=== PATIENT | female | born 1980 | race Caucasian/White ===

== ENCOUNTER 2021-11-04 15:06 | Emergency (ER) | payer MEDICAID ==
[~2021-11-04] VITALS: Ht 165.1 cm; Wt 91.0 kg
[2021-11-04 15:19] VITALS: BP 151/98
[2021-11-04] MEDS ORDERED: ibuprofen tablet 400 MG TABLET PO ONE (16:00)
[2021-11-04] MEDS ORDERED: acetaminophen 325mg tablet PO ONE (16:00)
[2021-11-04] MEDS ORDERED: ibuprofen 200mg tablet PO ONE (16:10)
== END 2021-11-04 16:24 | disposition home or self-care (01) ==
LOC: ER 15:07
DX: H92.03 Otalgia, bilateral (principal); Z86.73 Personal history of transient ischemic attack (TIA), and cerebral infarction without residual deficits
CPT/HCPCS: 99283

== ENCOUNTER 2024-03-25 11:02 | Emergency (ER) | payer BC, MEDICAID ==
[~2024-03-25] VITALS: Ht 165.1 cm; Wt 68.8 kg
[2024-03-25 11:19] VITALS: BP 100/59; PULSE 81; RESP 16; O2SAT 96
[2024-03-25] MEDS ORDERED: CYCL-1 PO (12:58)
[2024-03-25] MEDS ORDERED: ACET-1025 PO (13:05)
[2024-03-25 13:26] VITALS: TEMP 97.1
== END 2024-03-25 13:30 | disposition home or self-care (01) ==
LOC: ER 11:03
DX: M54.50 Low back pain, unspecified (principal); F32.A Depression, unspecified; F41.9 Anxiety disorder, unspecified; Z86.73 Personal history of transient ischemic attack (TIA), and cerebral infarction without residual deficits
CPT/HCPCS: 72100; 99283